=== PATIENT | male | born 1975 | race Caucasian/White ===

== ENCOUNTER 2019-04-09 01:42 | Emergency (ER) | payer OTHER ==
[~2019-04-09] VITALS: Ht 170.2 cm; Wt 96.2 kg
[2019-04-09 02:28] LABS: ABSOLUTE BASOPHILS 0.1 thou/uL (0.0-0.2); ABSOLUTE EOSINOPHILS 0.2 thou/uL (0.0-0.7); ABSOLUTE LYMPHOCYTES 3.2 thou/uL (0.8-5.3); ABSOLUTE MONOCYTES 0.5 thou/uL (0.0-1.2); ABSOLUTE NEUTROPHILS 5.3 thou/uL (1.6-8.1); BASOPHILS 0.7 %; EOSINOPHILS 2.2 %; HEMATOCRIT 44.6 % (42.0-52.0); HEMOGLOBIN 14.4 gm/dL (14.0-18.0); LYMPHOCYTES 34.4 %; MCH 26.7 pg (26.0-34.0); MCHC 32.3 g/dL (28.0-37.0); MCV 82.6 fL (80.0-100.0); MONOCYTES 5.2 %; MPV 10.1 fl. (7.2-11.1); NUCLEATED RBCS 0 /100WBC; PLATELET COUNT* 329 thou/uL (150-400); POLYS 57.5 %; RDW-CV 14.9 % (10.5-14.5); WBC 9.3 thou/uL (4.0-11.0)
[2019-04-09 02:58] LABS: CALCIUM 8.9 mg/dL (8.5-10.1); CREATININE 1.1 mg/dL (0.6-1.3); POTASSIUM 4.1 mmol/L (3.5-5.1)
[2019-04-09 03:02] LABS: ALBUMIN 3.9 g/dL (3.4-5.0); TOTAL BILIRUBIN 0.3 mg/dL (<0.1-1.0)
[2019-04-09 03:49] LABS: URINE BILIRUBIN NEGATIVE (Negative); URINE BLOOD 1+ (Negative); URINE CLARITY CLEAR; URINE COLOR YELLOW; URINE GLUCOSE-RANDOM NEGATIVE (Negative); URINE KETONES NEGATIVE (Negative); URINE LEUKOCYTES-REFLEX NEGATIVE (Negative); URINE NITRITE-REFLEX NEGATIVE (Negative); URINE PROTEIN NEGATIVE (Negative); URINE SPECIFIC GRAVITY 1.025 (1.005-1.030); URINE UROBILINOGEN 0.2 E.U./dl (0.2-1.0)
[2019-04-09 03:58] LABS: CASTS None Seen /LPF (None Seen); SQUAMOUS 0-3 Few /LPF (0-3); URINE WBC-REFLEX 0-5 Rare /HPF (0-5)
[2019-04-09 03:59] LABS: BACTERIA-REFLEX 1-9 Few /HPF (None Seen); CRYSTALS None Seen /LPF (None Seen); URINE RBC 0-2 Rare /HPF (0-2)
[2019-04-09] MEDS ORDERED: ZOFRAN ODT4 MG PO (04:07)
[2019-04-09] MEDS ORDERED: NORCO 5-325 TA1 EAC1 PO (04:07)
[2019-04-09 04:19] VITALS: BP 135/81
== END 2019-04-09 04:21 | disposition home or self-care (01) ==
LOC: M.ERS 01:42
PROVIDERS: Personal Emergency Response Attendant
DX: K80.50 Calculus of bile duct without cholangitis or cholecystitis without obstruction (principal); Z88.0 Allergy status to penicillin

== ENCOUNTER → 2019-05-14 | Outpatient (CLI) | payer OTHER ==
[~2019-05-14] MED LIST: NORCO 5-325 TA1 EAC1 PO; ZOFRAN ODT4 MG PO
== END ==
LOC: M.ULTRA 09:30
DX: K80.80 Other cholelithiasis without obstruction (principal); Z88.0 Allergy status to penicillin; Z79.899 Other long term (current) drug therapy

== ENCOUNTER → 2019-06-03 | Day surgery (SDC) | payer OTHER ==
--- NOTE | ~2019-06-03 | OP ---
[address] [address] OPERATIVE REPORT Name: KAVON MATTA Room: [facility]#: [id number] Admission: 06/03/19 Attend Phys: Jimbo Beaver DO Discharge: Date of : 71 Report #: [id number] THIS REPORT FOR: //name// CC: Jimbo Marshall DICTATED BY: Dexter Parsons DO DATE OF SERVICE: 06/03/2019 PREOPERATIVE DIAGNOSES: Cholecystitis and cholelithiasis. POSTOPERATIVE DIAGNOSES: Cholecystitis and cholelithiasis. PRIMARY SURGEON: Jimbo Beaver DO CO-SURGEON: Dexter Parsons DO, PGY-3. ORE GRADER: MILAN Brennan student. OPERATION PERFORMED: Laparoscopic cholecystectomy with immunofluorescence. ANESTHESIA TYPE: General and local. ESTIMATED BLOOD LOSS: 20 mL. SPECIMENS: Gallbladder. COMPLICATIONS: None. CONDITION: Stable. DISPOSITION: PACU to home. FINDINGS: Distended gallbladder with cholelithiasis. INDICATIONS FOR PROCEDURE: The patient is a pleasant 44-year-old male, who presented to the office with chief complaint of right upper quadrant abdominal pain. The pain was constant, intermittent, sharp, and worse postprandially. The patient underwent abdominal ultrasound showing cholelithiasis. Recommended laparoscopic cholecystectomy with immunofluorescence. Full discussion of procedure, alternatives, risks, and possible complications were discussed, included but not limited to bleeding, infection, postoperative pain, scarring, hernia, conversion to open procedure, bile leak, biloma, injury to other underlying abdominal organs mainly stomach, bowel, bile ducts, and liver, if bile duct injury were to occur, transfer to tertiary care facility for potential [facility] [address] [place] [address] OPERATIVE REPORT Name: KAVON MATTA Room: [facility]#: [id number] Admission: 06/03/19 Attend Phys: Jimbo Beaver DO Discharge: Date of : 71 Report #: [id number] further interventions and surgery, and anesthesia risks. The patient voiced understanding of these risks and agreed to proceed with surgery. OPERATIVE TECHNIQUE: The patient was again seen and examined in preoperative holding. Fully informed written consent was obtained. Preoperative antibiotics were given. The patient was subsequently transferred from operating room suite and placed on the operating table in supine position. At this time, anesthesia induced general anesthesia via the endotracheal intubation and this was successful. Footboard was placed to the patient's feet. SCDs were placed to bilateral lower extremity calves. Arms were placed out on arm boards. Grounding pad was placed to right lateral thigh. Safety strap was placed across the lap. All extremities and joints were padded and protected. Timeout was performed prior to onset of the procedure. The patient was prepped and draped using standard sterile fashion. After time-out, a vertical incision superior to the umbilicus was made using open Brown technique. We dissected down to the subcutaneous tissue until the reach the level of fascia. There was noted to be small incarcerated umbilical hernia. Umbilical stalk was ligated across the base. Hernia sac and contents were excised and there was noticed to be small amount of preperitoneal fat. Hemostat was used to rivera the peritoneum. Kochers were placed to bilateral fascial edges. Two 0 Prolene ttzffa-md-hfyeg interrupted sutures were placed at the apices of the fascial defect. A 5 mm Cyndie trocar was placed into the abdomen. Abdomen was insufflated first using low flow then high flow. A 5 mm 0 degree laparoscopic camera was placed into the abdomen and no injury to underlying abdominal structures upon entry into the abdomen. Next, we turned our attention to the right upper quadrant. There was omentum overlying the liver. An additional 5 mm trocar was placed in the epigastric region and two 5 mm trocars were placed in the right upper quadrant. Gallbladder was noted to be distended. This was elevated with locking wavy grasper. Omental and peritoneal attachments were taken down using electrocautery. Peritoneum was then pierced from the anterior aspect of the gallbladder and dissection was carried out laterally. ICG green immunofluorescence was used to evaluate cystic duct and common bile duct. The cystic duct was dissected out circumferentially using Maryland grasper. Cystic artery was noted to be just posterior to this and was dissected out in similar fashion. Critical view of safety was obtained. Intraoperative pictures were taken. Next Hem-o-noemi clips were used to clip the cystic duct and artery. Duct was clipped twice distally, once proximally and artery was clipped once distally and once proximally. Duct and artery were then transected using laparoscopic scissors. Electrocautery was then used to remove the gallbladder from the liver bed and gallbladder fossa. Gallbladder was then placed into an EndoCatch bag through the umbilical trocar. Right upper quadrant was copiously irrigated and suctioned using laparoscopic suction. Clips and gallbladder fossa and liver bed were evaluated again using immunofluorescence noting no bile leak or active hemorrhaging. Abdomen was desufflated under direct visualization. The 5 mm trocars were removed. Once the abdomen was fully desufflated, the camera and Cyndie trocar was removed and the gallbladder was removed in an EndoCatch bag [address] [address] OPERATIVE REPORT Name: KAVON MATTA Room: [facility]#: [id number] Admission: 06/03/19 Attend Phys: Jimbo Beaver DO Discharge: Date of : 71 Report #: [id number] through the umbilical trocar site. Two additional kjodmx-vt-ubckl interrupted 0 Prolene were used to close the fascial defect of the umbilical hernia. Umbilical stalk was reimplanted onto the fascia using a 2-0 interrupted Vicryl. Layered closure was then performed using 2-0 interrupted Vicryl of the subcutaneous in deep dermal layers. Skin was closed using a running subcuticular 4-0 Monocryl. Additional 5 mm trocar sites using an interrupted subcuticular 4-0 Monocryl. A 30 mL 0.5% Marcaine was used in total for local anesthetic at the trocar sites. Abdomen was cleansed using wet and dry lap. Sterile dressing was applied, Mastisol, Steri-Strips, Tegaderm, 4 x 4s, and Medipore tape. The patient tolerated the procedure well and was extubated in the OR, transferred to PACU in stable condition after brief recovery from anesthesia. PLAN: Discharge to home. Follow up in the office with Dr. Beaver in 1 week. By: [id number] Beaver DO /nt
--- NOTE | 2019-06-05 11:07 | PATH ---
[address] [address] PATHOLOGY RPT PROCEDURE Name: RIGOBERTO MATTABARON SHRESTHAIC Room: [facility].R.#: [id number] Admission: 06/03/19 Date of : 71 Discharge: Report #: [id number] Path Case #: [id number] [facility] Accession Number: [id number] . 01 Material submitted: . gallbladder - GALLBLADDER WITH HERNIA SAC . 01 Clinical history: . Cholecystitis, cholelithiasis, umbilical hernia . 02 Diagnosis: Gallbladder with hernia sac: - Chronic cholecystitis, cholesterolosis and cholelithiasis. - Benign fibrofatty tissue. (JANICE:aurea; 06/04/2019) [facility] 06/04/2019 1613 Local . 02 Electronically signed: . Scotty Pettit MD, Pathologist NPI- [id number] . 01 Gross description: . The specimen is received in formalin, labeled "David Matta, gallbladder with hernia sac", is a disrupted (along the hepatic aspect) and collapsed gallbladder measuring 6.5 cm in length and 2.2 cm in maximum diameter with a smooth, glistening and predominantly pink-purple serosa. The cystic duct region is impacted by an irregular roughly spherical black calculus measuring 0.4 cm in diameter. The mucosa is beckett-brown and with cholesterolosis. The wall is 0.1 cm in average thickness. Representatively submitted in A1. Also received is a disrupted, fibromembranous sac with attached adipose tissue and having cautery artifacts. The specimen measures 1.5 x 1.0 x 1.0 cm. The specimen is serially sectioned and entirely submitted in B1. ([facility]; 06/03/2019) [facility] 06/04/2019 1613 Local . 02 Pathologist provided ICD-10: K80.10, K82.4 . 02 CPT . 089968 Specimen Comment: A courtesy copy of this report has been sent to Specimen Comment: [phone], . Specimen Comment: Report sent to / DR BAEZ Performed at: [address] [facility], [place], [place] [id number] MD Ganga Durham MD Phone: [phone] [place] [address] PATHOLOGY RPT PROCEDURE Name: DAVID MATTA Room: [facility] Nereyda#: [id number] Admission: 06/03/19 Date of : 71 Discharge: Report #: [id number] Path Case #: [id number] Performed at: [address] [place] [id number] MD Scotty Pettit MD Phone: [phone]
== END | disposition home or self-care (01) ==
LOC: M.SUR 06:22
DX: R10.11 Right upper quadrant pain (principal); K80.10 Calculus of gallbladder with chronic cholecystitis without obstruction; K42.0 Umbilical hernia with obstruction, without gangrene; Z88.0 Allergy status to penicillin; Z79.891 Long term (current) use of opiate analgesic